=== PATIENT | male | born 1970 | race Caucasian/White ===

== ENCOUNTER 2019-08-12 16:40 | Emergency (ER) | payer OTHER ==
[~2019-08-12] VITALS: Ht 167.6 cm; Wt 93.0 kg
[~2019-08-12 16:40] MED LIST: AZOR 5/20 MG TA1 TAB; LOSARTAN-HCTZ1 EAC2; NORVASC5 MG
== END 2019-08-12 19:00 | disposition home or self-care (01) ==
LOC: ER 16:40
DX: K62.89 Other specified diseases of anus and rectum (principal)

== ENCOUNTER 2019-08-15 16:05 | Outpatient (CLI) | payer OTHER | END 2019-08-15 16:14 | disposition home or self-care (01) | LOC: LAB 16:05 | DX: N20.0 Calculus of kidney (principal) ==

== ENCOUNTER 2019-08-16 07:27 | Outpatient (CLI) | payer OTHER | END 2019-08-16 07:29 | disposition home or self-care (01) | LOC: TOM 07:27 | DX: K61.2 Anorectal abscess (principal); R10.84 Generalized abdominal pain ==

== ENCOUNTER 2021-02-11 11:18 | Emergency (ER) | payer OTHER ==
[~2021-02-11] VITALS: Ht 170.2 cm; Wt 88.5 kg
[2021-02-11] MEDS ORDERED: NORFLEX100MG PO (14:04)
[2021-02-11] MEDS ORDERED: KETO10TA2 PO (14:04)
== END 2021-02-11 14:07 | disposition home or self-care (01) ==
LOC: ER 11:18
DX: M54.5 Low back pain (principal)

== ENCOUNTER 2023-02-18 08:48 | Outpatient (CLI) | payer OTHER ==
[~2023-02-18 08:48] MED LIST changes: +KETO10TA2 PO; +NORFLEX100MG PO
== END 2023-02-18 09:18 | disposition home or self-care (01) ==
LOC: MRI 08:48
DX: M51.17 Intervertebral disc disorders with radiculopathy, lumbosacral region (principal); M50.10 Cervical disc disorder with radiculopathy, unspecified cervical region
CPT/HCPCS: 72148

== ENCOUNTER 2023-07-23 05:23 | Day surgery (SDC) | payer OTHER ==
[~2023-07-23 05:23] MED LIST changes: +MAGNE PO; +VITAMIN C100 MG PO
[2023-07-23] MEDS ORDERED: PERCOCET 5-3251 EACH PO (08:19)
[2023-07-23] MEDS ORDERED: RECTICARE30 GM TOP (08:20)
== END 2023-07-23 11:50 | disposition home or self-care (01) ==
LOC: CIR.AMB 05:23
PROVIDERS: ATTEND Surgery
DX: K60.3 Anal fistula (principal); K64.2 Third degree hemorrhoids; K92.1 Melena; R10.2 Pelvic and perineal pain; I10 Essential (primary) hypertension; Z20.822 Contact with and (suspected) exposure to COVID-19

== ENCOUNTER → 2025-09-07 | Outpatient (CLI) | payer OTHER ==
[~2025-09-07] MED LIST changes: +PERCOCET 5-3251 EACH PO; +RECTICARE30 GM TOP
== END | disposition home or self-care (01) ==
LOC: RAD 09:57
DX: M48.061 Spinal stenosis, lumbar region without neurogenic claudication (principal); M54.16 Radiculopathy, lumbar region